=== PATIENT | male | born 1955 | race Caucasian/White ===

== ENCOUNTER 2016-08-11 15:59 | Emergency (ER) | payer OTHER ==
[2016-08-11] MEDS ORDERED: Bupivacaine 0.25% 10 ML SDV INJECT ONE (16:04)
[2016-08-11] MEDS ORDERED: Diphtheria,Pertussis(Acell),Tetanus Vaccine 0.5 ML Syringe IM ONE (16:07)
--- NOTE | 2016-08-11 16:28 | EDM.PDOC ---
ED HPI GENERAL MEDICAL PROBLEM - General Chief Complaint: Upper Extremity Injury/Pain Stated Complaint: INJURED RT THUMB Time Seen by Provider: 08/11/16 16:03 - History of Present Illness INITIAL COMMENTS - FREE TEXT/NARRATIVE: HISTORY AND PHYSICAL: History of present illness: Patient 61-year-old male presents with concern of acute injury to his right hand that occurred in the form of crush injury at work in which he sustained a laceration with some tissue avulsion and loss of nail of the first digit he denies other trauma concern he denies up-to-date tetanus Review of systems: As per history of present illness and below otherwise all systems reviewed and negative. Past medical history: As per history of present illness and as reviewed below otherwise noncontributory. Surgical history: As per history of present illness and as reviewed below otherwise noncontributory. Social history: No reported history of drug or alcohol abuse. Family history: As per history of present illness and as reviewed below otherwise noncontributory. Physical exam: HEENT: Atraumatic, normocephalic, pupils reactive, negative for conjunctival pallor or scleral icterus, mucous membranes moist, throat clear, neck supple, nontender, trachea midline. Lungs: Clear to auscultation, breath sounds equal bilaterally, chest nontender. Heart: S1S2, regular, negative for clicks, rubs, or JVD. Abdomen: Soft, nondistended, nontender. Negative for masses or hepatosplenomegaly. Negative for costovertebral tenderness. Pelvis: Stable nontender. Genitourinary: Deferred. Rectal: Deferred. Extremities: Patient has a laceration the first digit of his right hand with nail avulsion noted he also has some macerated tissue and small tissue loss neurovascular exam is limited but grossly unremarkable Neuro: Awake, alert, oriented. Cranial nerves II through XII unremarkable. Cerebellum unremarkable. Motor and sensory unremarkable throughout. Exam nonfocal. Diagnostics: X-ray right hand Therapeutics: Digital block with 0.5 Marcaine was accomplished followed by irrigation with copious amount 0.9 normal saline patient was prepped and draped in a sterile manner and closed with 4-0 nylon suture bacitracin Tubegauz and splint was applied Impression: Acute injury first digit right hand (blunt force trauma) with laceration and nail avulsion Definitive disposition and diagnosis as appropriate pending reevaluation and review of above. Right 1-Thumb Pain Score (Numeric/FACES): 10 - Related Data Allergies Allergy/AdvReac Type Severity Reaction Status Date / Time No Known Allergies Allergy Verified 08/11/16 16:24 Home Meds: Home Meds Gabapentin [Neurontin] 08/11/16 [History] QUEtiapine [SEROquel] 08/11/16 [History] Past Medical History - Past Health History Medical/Surgical History: Denies Medical/Surgical History Musculoskeletal History: Reports: Back Pain, Chronic Psychiatric History: Reports: Bipolar - Infectious Disease History Infectious Disease History: Reports: Chicken Pox, Measles, Mumps Social & Family History - Family History Family Medical History: Noncontributory - Tobacco Use Smoking Status *Q: Current Every Day Smoker Years of Tobacco use: 50 Packs/Tins Daily: 1 - Recreational Drug Use Recreational Drug Use: No Review of Systems - Review of Systems Review Of Systems: ROS reveals no pertinent complaints other than HPI. ED EXAM, GENERAL - Physical Exam Exam: See Below (See dictation) Course - Vital Signs Last Recorded V/S: Last Vital Signs Temp 36.4 C 08/11/16 16:21 Pulse 65 08/11/16 16:21 Resp 18 08/11/16 16:21 BP 141/87 H 08/11/16 16:21 Pulse Ox 94 L 08/11/16 16:21 - Orders/Labs/Meds Orders: Active Orders 24 hr Category Date Time Status Vaccines to be Administered [RC] PER UNIT ROUTINE Care 08/11/16 16:07 Active Hand Comp Min 3V Rt [CR] Stat Exams 08/11/16 16:06 Ordered Meds: Medications Discontinued Medications Generic Name Dose Route Start Last Admin Trade Name Ashley PRN Reason Stop Dose Admin Bacitracin 1 dose 08/11/16 17:05 08/11/16 17:10 Bacitracin Oint 1 Gm TOP 08/11/16 17:06 1 dose ONETIME ONE Administration Bupivacaine HCl 10 ml 08/11/16 16:04 08/11/16 16:19 Sensorcaine-Mpf 0.25% INJECT 08/11/16 16:05 10 ml ONETIME ONE Administration Diphtheria/Tetanus/Acell Pertussis 0.5 ml 08/11/16 16:07 08/11/16 16:18 Adacel IM 08/11/16 16:08 0.5 ml .ONCE ONE Administration Departure - Departure Time of Disposition: 17:49 Disposition: Home, Self-Care 01 Condition: Good Clinical Impression: Hand injury, Open fracture of tuft of distal phalanx of finger - Discharge Information Forms: ED Department Discharge Additional Instructions: The following information is given to patients seen in the emergency department who are being discharged to home. This information is to outline your options for follow-up care. We provide all patients seen in our emergency department with a follow-up referral. The need for follow-up, as well as the timing and circumstances, are variable depending upon the specifics of your emergency department visit. If you don't have a primary care physician on staff, we will provide you with a referral. We always advise you to contact your personal physician following an emergency department visit to inform them of the circumstance of the visit and for follow-up with them and/or the need for any referrals to a consulting specialist. The emergency department will also refer you to a specialist when appropriate. This referral assures that you have the opportunity for followup care with a specialist. All of these measure are taken in an effort to provide you with optimal care, which includes your followup. Under all circumstances we always encourage you to contact your private physician who remains a resource for coordinating your care. When calling for followup care, please make the office aware that this follow-up is from your recent emergency room visit. If for any reason you are refused follow-up, please contact the [facility] emergency department at and asked to speak to the emergency department charge nurse. [facility] specialty clinic-Plastics [address] [place] [phone] Call to schedule routine appointment with plastic surgery above Keflex is prescribed hydrocodone as prescribed splint dressing changes as directed return as needed as discussed - My Orders Last 24 Hours: My Active Orders 08/11/16 16:06 Hand Comp Min 3V Rt [CR] Stat 08/11/16 16:07 Vaccines to be Administered [RC] PER UNIT ROUTINE - Assessment/Plan Last 24 Hours: My Active Orders 08/11/16 16:06 Hand Comp Min 3V Rt [CR] Stat 08/11/16 16:07 Vaccines to be Administered [RC] PER UNIT ROUTINE
[2016-08-11] MEDS ORDERED: Bacitracin Oint 1 GM U/D Packet TOP ONE (17:05)
[2016-08-11 18:11] VITALS: BP 142/79
--- NOTE | 2016-08-12 13:14 | CR ---
EXAM DATE: 08/11/16 PATIENT'S AGE: 61 Patient: TATE OBREGON Facility: [place], [place] Site . Site : 1955 Study: XRay Extremity hand [id number]/29/[id number] 4:33:21 PM Ordering Physician: Ruma Fitzpatrick Final Report: HISTORY: Crush injury to thumb. FINDINGS: Three views of right hand demonstrate soft tissue defect at the distal thumb. There is a healing nondisplaced fracture seen at the very tip of the distal tuft. IMPRESSION: Open fracture at the tip of the distal tuft of the thumb. Dictated by Eunice Amaya MD @ 08/11/2016 4:55:19 PM Dictated by: Eunice Amaya MD @ 08/11/2016 16:55:25 (Electronic Signature) Report Signed by Proxy. [facility]
== END 2016-08-11 18:05 | disposition home or self-care (01) ==
LOC: MW.ED 15:59
DX: S62.524B Nondisplaced fracture of distal phalanx of right thumb, initial encounter for open fracture (principal); F31.9 Bipolar disorder, unspecified; F17.210 Nicotine dependence, cigarettes, uncomplicated; W23.0XXA Caught, crushed, jammed, or pinched between moving objects, initial encounter; Y92.69 Other specified industrial and construction area as the place of occurrence of the external cause; Y99.0 Civilian activity done for income or pay; Z23 Encounter for immunization
CPT/HCPCS: 12041; 65205; 73130-26-RT; 73130-RT; 90471; 90715; 99283; 99283-25

== ENCOUNTER 2018-02-20 14:48 | Emergency (ER) | payer MEDICAID ==
[2018-02-20] MEDS ORDERED: Albuterol/Ipratropium 3.0-0.5 MG/3 ML Neb Soln NEB ONE (15:22)
--- NOTE | 2018-02-20 15:22 | EDM.PDOC ---
ED HPI GENERAL MEDICAL PROBLEM - General Chief Complaint: Cardiovascular Problem Stated Complaint: PAIN/SWELLING IN LEG Time Seen by Provider: 02/20/18 15:22 Source of Information: Reports: Patient History Limitations: Reports: No Limitations - History of Present Illness INITIAL COMMENTS - FREE TEXT/NARRATIVE: HISTORY AND PHYSICAL: History of present illness: Patient is a 63-year-old male here with complaint of left calf pain. He states he was seen in the ED approximately 3 weeks ago for acute low back pain. He states he had been having to crawl to get around due to his pain and took a 2 day trip in his car to [place] approximately 2 week ago. He reports since he took his trip he has been having pain in his left calf which he thought may have been due to having to crawl around. He states yesterday he was having right -sided sharp chest pain as well as tingling/numbness of the forehead bilaterally and hands bilaterally. He reports he has been having some shortness of breath over the past couple of weeks. Patient is a smoker, has been prescribed inhalers for COPD which she does not use. Review of systems: As per history of present illness and below otherwise all systems reviewed and negative. Past medical history: As per history of present illness and as reviewed below otherwise noncontributory. Surgical history: As per history of present illness and as reviewed below otherwise noncontributory. Social history: No reported history of drug or alcohol abuse. Family history: As per history of present illness and as reviewed below otherwise noncontributory. Physical exam: General: Patient sitting comfortably in no acute distress and nontoxic appearing HEENT: Atraumatic, normocephalic, pupils reactive, negative for conjunctival pallor or scleral icterus, mucous membranes moist, throat clear, neck supple, nontender, trachea midline. No meningeal signs. Lungs: Rhonchi at lung bases with some apical wheezing bilaterally, breath sounds equal bilaterally, chest nontender. Heart: S1S2, regular, negative for clicks, rubs, or overt murmur. Abdomen: Soft, nondistended, nontender. Negative for masses or hepatosplenomegaly. Negative for costovertebral tenderness. Pelvis: Stable nontender. Genitourinary: Deferred. Rectal: Deferred. Extremities: Atraumatic, pain to palpation of left calf. Neurovascular unremarkable. Neuro: Awake, alert, oriented. Cranial nerves II through XII unremarkable. Cerebellum unremarkable. Motor and sensory unremarkable throughout. Exam nonfocal. Notes: Diagnostics: CBC, CMP, troponin, EKG, CXR, venous doppler US, CTA Therapeutics: DuoNeb Lovenox 100mg Prescriptions: Xarelto 15mg BID Impression: DVT, PE Plan: 1. Start xarelto in the morning. Take twice daily as instructed. 2. Follow up with primary care provider. You will need a refill of xarelto and further care. 3. Return to ED as needed as discussed Definitive disposition and diagnosis as appropriate pending reevaluation and review of above. Left Leg Pain Score (Numeric/FACES): 10 - Related Data Allergies Allergy/AdvReac Type Severity Reaction Status Date / Time No Known Allergies Allergy Verified 01/30/18 11:43 Home Meds: Home Meds Gabapentin [Neurontin] 1 cap PO TID 08/11/16 [History] QUEtiapine [SEROquel] 1 tab PO DAILY 08/11/16 [History] Acetaminophen/HYDROcodone [[place] 325-5 MG] 1 dose PO Q4H PRN #20 tablet [Rx] Rivaroxaban [Xarelto] 15 mg PO BID 21 Days #42 tablet 02/20/18 [Rx] Past Medical History - Past Health History Medical/Surgical History: Denies Medical/Surgical History HEENT History: Reports: None Cardiovascular History: Reports: None Respiratory History: Reports: None Gastrointestinal History: Reports: None Genitourinary History: Reports: None Musculoskeletal History: Reports: Back Pain, Chronic Neurological History: Reports: None Psychiatric History: Reports: Bipolar Endocrine/Metabolic History: Reports: None Hematologic History: Reports: None Immunologic History: Reports: None Oncologic (Cancer) History: Reports: None Dermatologic History: Reports: None - Infectious Disease History Infectious Disease History: Reports: Chicken Pox, Hepatitis C, Measles, Mumps - Past Surgical History Head Surgeries/Procedures: Reports: None Other Musculoskeletal Surgeries/Procedures:: Neck surgery. spinal fusion C4,5,6. Social & Family History - Family History Family Medical History: Noncontributory - Tobacco Use Smoking Status *Q: Current Every Day Smoker Years of Tobacco use: 50 Packs/Tins Daily: 1 - Caffeine Use Caffeine Use: Reports: Coffee - Recreational Drug Use Recreational Drug Use: No ED ROS GENERAL - Review of Systems Review Of Systems: ROS reveals no pertinent complaints other than HPI. ED EXAM, GENERAL - Physical Exam Exam: See Below (see dictation) Course - Vital Signs Last Recorded V/S: Last Vital Signs Temp 97.7 F 02/20/18 16:00 Pulse 65 02/20/18 18:57 Resp 20 02/20/18 18:57 BP 155/80 H 02/20/18 18:57 Pulse Ox 95 02/20/18 18:57 - Orders/Labs/Meds Orders: Active Orders 24 hr Category Date Time Status EKG Documentation Completion [RC] STAT Care 02/20/18 15:05 Active RT Aerosol Therapy [RC] ASDIRECTED Care 02/20/18 15:22 Active CTA Chest W WO Contrast [Ang Chest] [CT] Stat Exams 02/20/18 16:23 Taken Labs: Laboratory Tests 02/20/18 02/20/18 Range/Units 15:16 15:16 WBC 9.21 (4.0-11.0) K/uL RBC 4.30 L (4.50-5.90) M/uL Hgb 13.9 (13.0-17.0) g/dL Hct 42.3 (38.0-50.0) % MCV 98.4 H (80.0-98.0) fL MCH 32.3 H (27.0-32.0) pg MCHC 32.9 (31.0-37.0) g/dL RDW Std Deviation 49.9 (28.0-62.0) fl RDW Coeff of Krystal 14 (11.0-15.0) % Plt Count 206 (150-400) K/uL MPV 10.00 (7.40-12.00) fL Neut % (Auto) 66.8 (48.0-80.0) % Lymph % (Auto) 21.4 (16.0-40.0) % [place] % (Auto) 9.7 (0.0-15.0) % Eos % (Auto) 1.8 (0.0-7.0) % Baso % (Auto) 0.3 (0.0-1.5) % Neut # (Auto) 6.2 H (1.4-5.7) K/uL Lymph # (Auto) 2.0 (0.6-2.4) K/uL [place] # (Auto) 0.9 H (0.0-0.8) K/uL Eos # (Auto) 0.2 (0.0-0.7) K/uL Baso # (Auto) 0.0 (0.0-0.1) K/uL Nucleated RBC % 0.0 /100WBC Nucleated RBCs # 0 K/uL Sodium 142 (136-148) mmol/L Potassium 4.0 (3.5-5.1) mmol/L Chloride 109 H (98-107) mmol/L Carbon Dioxide 24.9 (21.0-32.0) mmol/L BUN 16 (7.0-18.0) mg/dL Creatinine 1.2 (0.8-1.3) mg/dL Est Cr Clr Drug Dosing 65.06 mL/min Estimated GFR (MDRD) > 60.0 ml/min Glucose 111 H (74-106) mg/dL Calcium 8.7 (8.5-10.1) mg/dL Total Bilirubin 0.4 (0.2-1.0) mg/dL AST 13 L (15-37) IU/L ALT 25 (14-63) IU/L Alkaline Phosphatase 87 (46-116) U/L Troponin I < 0.050 (0.000-0.056) ng/mL Total Protein 7.2 (6.4-8.2) g/dL Albumin 3.3 L (3.4-5.0) g/dL Globulin 3.9 (2.6-4.0) g/dL Albumin/Globulin Ratio 0.9 (0.9-1.6) Meds: Medications Discontinued Medications Generic Name Dose Route Start Last Admin Trade Name Freq PRN Reason Stop Dose Admin Albuterol/Ipratropium 3 ml 02/20/18 15:22 02/20/18 15:49 Duoneb 3.0-0.5 Mg/3 Ml NEB 02/20/18 15:23 3 ml ONETIME ONE Administration Enoxaparin Sodium 100 mg 02/20/18 17:52 02/20/18 17:57 Lovenox SUBCUT 02/20/18 17:53 100 mg ONETIME ONE Administration Iopamidol 100 ml 02/20/18 17:03 02/20/18 17:03 Isovue Multipack-370 (76%) IVPUSH 02/20/18 17:04 100 ml ONETIME STA Administration Departure - Departure Time of Disposition: 19:08 Disposition: Home, Self-Care 01 Condition: Good Clinical Impression: DVT (deep venous thrombosis), Pulmonary embolism Prescriptions: Rivaroxaban [Xarelto] 15 mg PO BID 21 Days #42 tablet Referrals: PCP,None [Primary Care Provider] - Forms: ED Department Discharge Additional Instructions: The following information is given to patients seen in the emergency department who are being discharged to home. This information is to outline your options for follow-up care. We provide all patients seen in our emergency department with a follow-up referral. The need for follow-up, as well as the timing and circumstances, are variable depending upon the specifics of your emergency department visit. If you don't have a primary care physician on staff, we will provide you with a referral. We always advise you to contact your personal physician following an emergency department visit to inform them of the circumstance of the visit and for follow-up with them and/or the need for any referrals to a consulting specialist. The emergency department will also refer you to a specialist when appropriate. This referral assures that you have the opportunity for follow-up care with a specialist. All of these measure are taken in an effort to provide you with optimal care, which includes your follow-up. Under all circumstances we always encourage you to contact your private physician who remains a resource for coordinating your care. When calling for follow-up care, please make the office aware that this follow-up is from your recent emergency room visit. If for any reason you are refused follow-up, please contact the [facility] Emergency Department at and asked to speak to the emergency department charge nurse. [facility] [address] [place] [address] [id number] [address] [address] 1. Start xarelto in the morning. Take twice daily as instructed. 2. Follow up with primary care provider. You will need a refill of xarelto and further care. 3. Return to ED as needed as discussed - My Orders Last 24 Hours: My Active Orders 02/20/18 15:05 EKG Documentation Completion [RC] STAT 02/20/18 15:22 RT Aerosol Therapy [RC] ASDIRECTED 02/20/18 16:23 CTA Chest W WO Contrast [Ang Chest] [CT] Stat - Assessment/Plan Last 24 Hours: My Active Orders 02/20/18 15:05 EKG Documentation Completion [RC] STAT 02/20/18 15:22 RT Aerosol Therapy [RC] ASDIRECTED 02/20/18 16:23 CTA Chest W WO Contrast [Ang Chest] [CT] Stat
--- NOTE | 2018-02-20 15:38 | CR ---
EXAMINATION: Portable chest radiograph. HISTORY: Shortness of breath. FINDINGS: The trachea is midline. The cardiomediastinal silhouette is within normal limits. No pulmonary infiltrates, effusions or pneumothorax. Osseous structures appear unremarkable. IMPRESSION: No acute cardiopulmonary process.
[2018-02-20 15:49] LABS: CHLORIDE,CL 109 mmol/L (98-107); SODIUM,NA 142 mmol/L (136-148)
--- NOTE | 2018-02-20 16:18 | US ---
ULTRASOUND EXAMINATION OF the left lower extremity WITH DOPPLER HISTORY: Pain FINDINGS: Examination of the left leg was performed from the groin to the calf region. All visualized segments including common femoral, proximal greater saphenous, superficial femoral, popliteal and calf veins appear patent with good compressibility and augmentation. There is however a noncompressible filling defect noted within the region of the gastrocnemius vein. IMPRESSION: 1. Noncompressible filling defect within the left gastrocnemius vein consistent with a venous thrombus.
[2018-02-20] MEDS ORDERED: Iopamidol 755 MG/ML 500 ML Multipack Bottle IVPUSH STA (17:03)
[2018-02-20] MEDS ORDERED: Enoxaparin 100 MG/1 ML Syringe SUBCUT ONE (17:52)
[2018-02-20 18:58] VITALS: BP 155/80
--- NOTE | 2018-02-21 10:49 | CT ---
EXAM DATE: 02/20/18 PATIENT'S AGE: 63 Patient: TATE OBREGON Facility: [place], [place] Site . Site : 1955 Study: CT Chest Angio [id number] 5:09:34 PM Ordering Physician: Doctor Rodrgiuez Final Report: INDICATION: Shortness of breath for 3 weeks, chest pain since yesterday, positive DVT today TECHNIQUE: CT chest pulmonary PE protocol acquired with 100 cc Isovue 370 IV contrast. Because of patient coughing during the initial exam, a repeat CT with additional 100 cc of Isovue 370 was obtained. COMPARISON: None FINDINGS: Cardiovascular structures: The study is positive for acute pulmonary embolism within subsegmental branches of the right lower, left upper and left lower lobes and segmental branches of the right upper lobe. There is no evidence for right heart strain. Heart size is normal. No sign of aneurysm in the thoracic aorta. Mediastinum and [place]: No mass or adenopathy. Lungs: Mild emphysematous changes. Pleura and pericardium: No effusions. Chest wall and axilla: No mass or adenopathy. Upper abdomen: Unremarkable. Bones: No significant findings. IMPRESSION: Study is positive for acute pulmonary embolism within segmental branches of the right upper lobe and subsegmental branches of the bilateral lower and left upper lobes. No evidence for right heart strain. Mild emphysematous changes. These findings were discussed with Dr. Larry at 6:40 p.m. on February 20, 2018. Please note that all CT scans at this facility use dose modulation, iterative reconstruction, and/or weight-based dosing when appropriate to reduce radiation dose to as low as reasonably achievable. Dictated by Caitlin Mccarty MD @ Feb 20 2018 6:27PM (Electronic Signature) Report Signed by Proxy. [facility]afat
== END 2018-02-20 17:25 | disposition home or self-care (01) ==
LOC: MW.ED 14:48
DX: I82.4Z2 Acute embolism and thrombosis of unspecified deep veins of left distal lower extremity (principal); I26.99 Other pulmonary embolism without acute cor pulmonale; F17.210 Nicotine dependence, cigarettes, uncomplicated
CPT/HCPCS: 36415; 71045; 71275; 80053; 84484; 85025; 93005; 93971; 94640; 96372; 99285; J1650; Q9967; J7620-GY